=== PATIENT | male | born 1995 | race Caucasian/White ===

== ENCOUNTER 2019-09-07 08:00 | Outpatient (NON) | payer SELFPAY ==
[2019-09-07 17:16] LABS: SARS-CoV-2 RNA PCR Negative
== END 2019-09-07 08:01 ==
PROVIDERS: PCP Family Medicine; Visit Provider Family Medicine
DX: Z20.828 Contact with and (suspected) exposure to other viral communicable diseases (principal)
CPT/HCPCS: 87635; C9803; U0003